=== PATIENT | female | born 1995 | race African-American/Black ===

== ENCOUNTER 2021-11-16 18:07 | Emergency (ER) | payer BC ==
--- NOTE | 2021-11-16 19:00 | RAD REPORT ---
EXAM DESCRIPTION: CT - Thorax Wo Con - 11/16/2021 6:51 pm CLINICAL HISTORY: Chest pain/left rib pain COMPARISON: none TECHNIQUE: Computed axial tomography of the chest was obtained. Contrast was not requested. All CT scans are performed using dose optimization technique as appropriate and may include automated exposure control or mA/KV adjustment according to patient size. FINDINGS: The evaluation of mediastinum, evangelista and vessels is limited secondary to lack of IV contras t administration. The lungs are clear. No mediastinal or hilar lymphadenopathy is seen. A pleural effusion is not present. No pericardial effusion. Rib fracture is not visualized IMPRESSION: Unremarkable examination
[2021-11-16] MEDS ORDERED: ONDANSETRON 4 MG (ODT) TAB ONE (19:13)
[2021-11-16] MEDS ORDERED: KETOROLAC 30 MG/ML INJ ONE (19:14)
--- NOTE | 2021-11-16 19:42 | EDPHYS ---
Physician Documentation [facility] Name: Yony Porter Age: 26 yrs Sex: Female : 1995 Arrival Date: 11/16/2021 Time: 18:09 Bed 11 Private MD: ED Physician Edgar Jonas HPI: 11/16 18:40 This 26 yrs old Black Female presents to ER via Ambulatory with complaints of Rib pain. jmm 18:41 The patient or guardian reports chest pain that is located primarily in the anterior [facility] chest wall. Onset: The symptoms/episode began/occurred. The pain does not radiate. The chest pain is described as aching, sharp. Duration: The patient or guardian reports a single episode, that is still ongoing. Modifying factors: The symptoms are alleviated by nothing. the symptoms are aggravated by palpation of area. The patient has not experienced similar symptoms in the past. Is a 26-year-old female with no known chronic lung conditions presents emerged department with complaints of left sided rib pain. Denies rash, fever, trauma.. 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 18:41 All other systems are negative. Exam: 18:41 Constitutional: This is a well developed, well nourished patient who is awake, alert, jmm and in no acute distress. Head/Face: atraumatic. Eyes: EOMI, no conjunctival erythema appreciated ENT: Moist Mucus Membranes Neck: Trachea midline, Supple 18:41 Cardiovascular: Regular rate and rhythm. No edema appreciated Respiratory: Normal respirations, no respiratory distress appreciated Abdomen/GI: Non distended, soft Back: Normal ROM Skin: General appearance color normal MS/ Extremity: Moves all extremities, no obvious deformities appreciated, no edema noted to the lower extremities Neuro: Awake and alert Psych: Behavior is normal, Mood is normal, Patient is cooperative and pleasant 18:41 Chest/axilla: Inspection: Tenderness appreciated to the left axillary line of the chest wall, no rash appreciated. Vital Signs: 18:32 BP 110 / 69; Pulse 76; Resp 16; Temp 98.1; Pulse Ox 100% on R/A; iw MDM: 18:40 Patient medically screened. [facility] 19:36 Data reviewed: vital signs, nurses notes. Counseling: I had a detailed discussion with [facility] the patient and/or guardian regarding: the historical points, exam findings, and any diagnostic results supporting the discharge/admit diagnosis, the need for outpatient follow up, to return to the emergency department if symptoms worsen or persist or if there are any questions or concerns that arise at home. ED course: Most likely musculoskeletal Patient advised to follow up with pcp and otherwise given strict return precautions. Patient understood and agrees with the plan of care. . 11/16 18:36 Order name: CT Chest Wo Con; Complete Time: 19:20 [facility] 11/16 18:36 Order name: Urine Test (obtain specimen); Complete Time: 18:51 [facility] Administered Medications: 18:52 Not Given (Patient Refused): morphine 4 mg IM once iw 19:12 Drug: Ondansetron 4 mg Route: PO; iw 19:12 Drug: Ketorolac 30 mg Route: IM; Site: left deltoid; iw Disposition: 22:17 Co-signature as Attending Physician, Edgar Jonas DO I was immediately available on-site ms3 in the Emergency Department for consultation in the care of the patient.. Disposition Summary: 11/16/21 19:40 Discharge Ordered Location: Home [facility] Condition: Stable [facility] Diagnosis - Intercostal pain [facility] Followup: [facility] - With: Private Physician - When: 2 - 3 days - Reason: Recheck today's complaints, Continuance of care, Re-evaluation by your physician Discharge Instructions: - Discharge Summary Sheet [facility] - Chest Wall Pain [facility] - Costochondritis [facility] Forms: - Work release form [facility] - Medication Reconciliation Form [facility] - Thank You Letter [facility] - Antibiotic Education [facility] - Prescription Opioid Use [facility] Prescriptions: - Zanaflex 4 mg Oral Tablet - take 1 tablet by ORAL route every 8 hours As needed; 20 tablet; Refills: 0, [facility] Product Selection Permitted - Diclofenac Sodium 75 mg Oral Tablet Sustained Release - take 1 tablet by ORAL route 2 times per day; 30 tablet; Refills: 0, Product nayan Selection Permitted Signatures: Dispatcher [employer] Karan Aly PA PA jmm Williams, Irene, RN RN Edgar Sanchez DO DO ms3 Corrections: (The following items were deleted from the chart) 18:34 18:33 PSHx: None; ele marlow
--- NOTE | 2021-11-16 19:42 | ER ---
Nurse's Notes [facility] Name: Yony Porter Age: 26 yrs Sex: Female : 1995 Arrival Date: 11/16/2021 Time: 18:09 Bed 11 Private MD: Diagnosis: Intercostal pain Presentation: 11/16 18:32 Chief complaint: Patient states: left sided rib pain since 32, painful to touch, was iw sent home from work. Coronavirus screen: At this time, the client does not indicate any symptoms associated with coronavirus-19. Ebola Screen: Patient negative for fever greater than or equal to 101.5 degrees Fahrenheit, and additional compatible Ebola Virus Disease symptoms Patient denies exposure to infectious person. Patient denies travel to an Ebola-affected area in the 21 days before illness onset. No symptoms or risks identified at this time. Initial Sepsis Screen: Does the patient meet any 2 criteria? No. Patient's initial sepsis screen is negative. Does the patient have a suspected source of infection? No. Patient's initial sepsis screen is negative. Risk Assessment: Do you want to hurt yourself or someone else? Patient reports no desire to harm self or others. Onset of symptoms was November 04, 2021. 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 Denies injuries from another. Nutritional iw screening: No deficits noted. Tuberculosis screening: No symptoms or risk factors identified. Fall Risk None identified. Assessment: 18:49 General: Appears in no apparent distress. Behavior is calm, cooperative. Pain: iw Complains of pain in left lateral posterior chest and left lateral anterior chest. Neuro: [place] Agitation-Sedation Scale (RASS): Level of Consciousness is awake, alert, obeys commands, Moves all extremities. Cardiovascular: Patient's skin is warm and dry. 18:51 Reassessment: UPT negative, taken to CT. iw 19:14 Reassessment: Patient appears in no apparent distress at this time. Patient and/or iw family updated on plan of care and expected duration. Pain level reassessed. Patient is alert, oriented x 3, equal unlabored respirations, skin warm/dry/pink. Vital Signs: 18:32 BP 110 / 69; Pulse 76; Resp 16; Temp 98.1; Pulse Ox 100% on R/A; iw ED Course: 18:09 Patient arrived in ED. mr 18:18 Karan Rodriges PA is PHCP. [facility] 18:18 Edgar Jonas DO is Attending Physician. m 18:33 Triage completed. iw 18:34 Arm band placed on. iw 18:51 Olga Landin, LISA is Primary Nurse. iw 18:53 CT Chest Wo Con In Process Unspecified. EDMS 19:14 No provider procedures requiring assistance completed. Patient did not have IV access iw during this emergency room visit. Administered Medications: 18:52 Not Given (Patient Refused): morphine 4 mg IM once iw 19:12 Drug: Ondansetron 4 mg Route: PO; iw 19:12 Drug: Ketorolac 30 mg Route: IM; Site: left deltoid; iw Outcome: 19:40 Discharge ordered by MD. [facility] 19:50 Discharged to home ambulatory. ss 19:50 Condition: good 19:50 Discharge instructions given to patient, Instructed on discharge instructions, follow up and referral plans. medication usage, Demonstrated understanding of instructions, follow-up care, medications, Prescriptions given X 2. 19:50 Patient left the ED. ss Signatures: Dispatcher [employer] EDMT Karan Rodriges PA PA [facility] Madeline Krishna mr Olga Landin, RN LISA Virgen Diaz RN RN ss Corrections: (The following items were deleted from the chart) 18:34 18:32 Pulse 76bpm; Resp 16bpm; Pulse Ox 100% RA; Temp 98.1F; iw iw 18:34 18:33 PSHx: None; iw iw
[2021-11-17 00:21] VITALS: BP 110/69; TEMP 98.1; O2SAT 100
== END 2021-11-16 19:50 | disposition home or self-care (01) ==
LOC: ER 18:07
DX: R07.82 Intercostal pain (principal)
CPT/HCPCS: 71250; 96372; 99283